=== PATIENT | male | born 1985 | race Two or more races ===

== ENCOUNTER 2022-05-12 07:50 | Emergency (ER) | payer MEDICAID, OTHER ==
[~2022-05-12] VITALS: Ht 175.3 cm; Wt 119.6 kg
[2022-05-12 08:03] VITALS: BP 159/99
[2022-05-12] MEDS ORDERED: HYDROcodone-ACET 5/325MG TAB PO ONE (08:30)
[2022-05-12 08:40] LABS: Basophils # (auto) 0.1 10 ^3/uL (0-0.2); Basophils % (auto) 0.8 % (0.0-2.0); Eosinophils # (auto) 0 10 ^3/uL (0-0.8); Eosinophils % (auto) 0.2 % (0.0-7.0); Hematocrit 43.7 % (41.0-53.0); Hemoglobin 14.9 g/dL (13.5-17.5); Lymphocytes # (auto) 1.5 10 ^3/uL (0.4-5.4); Lymphocytes % (auto) 11.3 % (10.0-50.0); Mean Corpuscular Hemoglobin 31.6 pg (28.0-32.0); Monocytes # (auto) 0.6 10 ^3/uL (0-1.3); Monocytes % (auto) 4.8 % (0.0-12.0); Neutrophils # (auto) 10.9 10 ^3/uL (1.6-8.6); Neutrophils % (auto) 82.9 % (37.0-80.0); Red Cell Distribution Width 13.2 % (11.8-14.3); White Blood Cell 13.1 10^3/uL (4.4-10.8)
[2022-05-12 08:50] LABS: Urine Amorphous Crystal FEW /hpf (None Seen); Urine Bacteria NONE SEEN /hpf (None Seen); Urine Blood 3+ /uL (Negative); Urine Mucus FEW (None Seen); Urine Specific Gravity 1.018 (1.001-1.035); Urine WBC 3 /hpf (0 - 3)
[2022-05-12 09:06] LABS: Albumin 4.2 g/dL (3.4-5.0); BUN/Creatinine Ratio 6.3; Calcium 9.9 mg/dL (8.5-10.1); Potassium 4.2 mmol/L (3.5-5.1)
[2022-05-12 09:15] LABS: Bilirubin, Total 0.4 mg/dL (0.2-1.0); Total Protein 7.6 g/dL (6.4-8.2)
[2022-05-12] MEDS ORDERED: MANNITOL 20% SOLN 100 gm/500ml 100 ML IV ONE (12:45)
[2022-05-12] MEDS ORDERED: TAMSULOSIN HYDROCHLORIDE 0.4 MG CAP PO ONE (12:45)
[2022-05-12] MEDS ORDERED: PHENAZOPYRIDINE HCL 100 MG TAB PO ONE (12:45)
[2022-05-12] MEDS ORDERED: TAM04C PO (13:13)
[2022-05-12] MEDS ORDERED: CIPR-173 PO (13:13)
[2022-05-12] MEDS ORDERED: HYDR1TAB97 PO (13:13)
== END 2022-05-12 13:04 | disposition left against medical advice (07) ==
LOC: ER 07:50
DX: N13.30 Unspecified hydronephrosis (principal); N20.1 Calculus of ureter; N13.4 Hydroureter
CPT/HCPCS: 36415; 74177; 80053; 81001; 85025; 99285; Q9967